=== PATIENT | female | born 1995 | race Caucasian/White ===

== ENCOUNTER 2017-10-01 12:57 | Emergency (ER) | payer MEDICAID ==
[2017-10-01 13:45] LABS: HEMATOCRIT 38.1 % (36.0-48.0); HEMOGLOBIN 12.7 g/dL (12-16); MCH 28.7 pg (26.0-34.0); MCHC 33.3 g/dL (31.0-37.0); MCV 86.2 fL (80.0-100.0); MEAN PLATELET VOLUME 10.5 fL (7.4-10.4); PLATELET COUNT 161 10x3/uL (130-400); RBC 4.42 10x6/uL (4.00-5.40); RDW 12.1 % (11.5-14.5); WBC 2.4 10x3/uL (4.8-10.8)
[2017-10-01 13:58] LABS: APPEARANCE CLOUDY (CLEAR); BILIRUBIN NEGATIVE (NEGATIVE); COLOR YELLOW (YELLOW); GLUCOSE NEGATIVE (NEGATIVE); KETONE SMALL mg/dL (NEGATIVE); NITRITE NEGATIVE (NEGATIVE); PROTEIN NEGATIVE (NEGATIVE); SPECIFIC GRAVITY 1.025 (1.005-1.020); UROBILINOGEN NORMAL (NORMAL)
[2017-10-01 14:00] LABS: BACTERIA MODERATE /hpf (NONE SEEN); EPITHELIAL CELLS 25-50 /hpf (0-5); MUCUS <1+ /lpf (NONE SEEN); RED CELLS - URINE 0-5 /hpf (0-5); WHITE CELLS - URINE 0-5 /hpf (0-5)
[2017-10-01 14:06] LABS: ALBUMIN 3.7 g/dL (3.4-5.0); ALKALINE PHOSPHATASE 61 U/L (46-116); ALT (SGPT) 49 U/L (10-68); AMYLASE - SERUM 47 U/L (25-115); BILIRUBIN - TOTAL 0.32 mg/dL (0.2-1.3); CALC OSMOLALITY 275 mosm/kg (275-300); CALCIUM 8.3 mg/dL (8.5-10.1); CARBON DIOXIDE 27.2 mmol/L (21.0-32.0); CHLORIDE - SERUM 104 mmol/L (98-107); CREATININE - SERUM 0.6 mg/dL (0.6-1.3); GLUCOSE 91 mg/dL (74-106); LIPASE 94 U/L (73-393); POTASSIUM - SERUM 3.7 mmol/L (3.5-5.1); PROTEIN - SERUM 6.8 g/dL (6.4-8.2); SODIUM 139 mmol/L (136-145); UREA NITROGEN 8 mg/dL (7-18); eGFR NON AFRICAN AMERICAN > 90 mL/min (90-120)
[2017-10-01 14:10] LABS: EOSINOPHILS 9 % (0-7); LYMPHOCYTES 36 % (15-50); MONOCYTES 4 % (2-11); NEUTROPHILS 46 % (40-80); PLATELET ESTIMATE NORMAL
== END 2017-10-01 15:10 | disposition home or self-care (01) ==
LOC: D.ER 12:57
PROVIDERS: Emergency Medicine
DX: R10.13 Epigastric pain (principal); D70.9 Neutropenia, unspecified; E03.9 Hypothyroidism, unspecified

== ENCOUNTER 2018-03-03 10:47 | Emergency (ER) | payer MEDICAID ==
[~2018-03-03] VITALS: Ht 160 cm; Wt 90.9 kg
[2018-03-03 11:11] VITALS: Ht 160 cm; Wt 90.9 kg
[2018-03-03] MEDS ORDERED: LEVO-T25 MCG PO (11:12)
[2018-03-03 13:23] LABS: HCG SERUM NEGATIVE (NEGATIVE)
[2018-03-03] MEDS ORDERED: ULTRAM50 MG PO (14:30)
[2018-03-03 14:36] VITALS: BP 118/68
== END 2018-03-03 14:41 | disposition home or self-care (01) ==
LOC: D.ER 10:47
PROVIDERS: Family Medicine
DX: R51 Headache (principal); S16.1XXA Strain of muscle, fascia and tendon at neck level, initial encounter; V43.52XA Car driver injured in collision with other type car in traffic accident, initial encounter; Y93.89 Activity, other specified; Y92.410 Unspecified street and highway as the place of occurrence of the external cause; M54.6 Pain in thoracic spine; E07.89 Other specified disorders of thyroid

== ENCOUNTER 2018-10-24 19:38 | Emergency (ER) | payer MEDICAID ==
[~2018-10-24] VITALS: Ht 160 cm; Wt 86.4 kg
[~2018-10-24 19:38] MED LIST: LEVO-T25 MCG PO; ULTRAM50 MG PO
[2018-10-24 19:44] VITALS: Ht 160 cm; Wt 86.4 kg
[2018-10-24] MEDS ORDERED: ACETAMINOPHEN500 M1 PO (20:48)
[2018-10-24] MEDS ORDERED: PREDNISONE10 MG PO (20:48)
[2018-10-24 21:21] VITALS: BP 121/79
== END 2018-10-24 21:21 | disposition home or self-care (01) ==
LOC: D.ER 19:38
DX: M25.551 Pain in right hip (principal)